=== PATIENT | male | born 1990 | race Native Hawaiian/Other Pacific Islander ===

== ENCOUNTER 2019-01-05 13:16 | Emergency (ER) | payer BC ==
[~2019-01-05] VITALS: Ht 177.8 cm; Wt 80.3 kg
[2019-01-05 13:20] VITALS: BP 160/95; TEMP 99.1
== END 2019-01-05 15:51 | disposition home or self-care (01) ==
LOC: ED 13:16
PROC: 0HQFXZZ Repair Right Hand Skin, External Approach (ICD-10-PCS; principal; 2019-01-05)
PROC: 2W3JX1Z Immobilization of Right Finger using Splint (ICD-10-PCS; 2019-01-05)
DX: S61.220A Laceration with foreign body of right index finger without damage to nail, initial encounter (principal); W29.8XXA Contact with other powered hand tools and household machinery, initial encounter
CPT/HCPCS: 90471; 90715; 96372; 99283; J0696; J7040

== ENCOUNTER 2019-01-07 08:56 | Emergency (ER) | payer BC ==
[~2019-01-07] VITALS: Ht 177.8 cm; Wt 80.3 kg
[2019-01-07 09:09] VITALS: BP 139/86; TEMP 99.7
[2019-01-07] MEDS ORDERED: CEPH500C20 PO ×2 (09:38)
[2019-01-07] MEDS ORDERED: NEOMOIN TOP ×2 (10:00)
== END 2019-01-07 09:55 | disposition home or self-care (01) ==
LOC: ED 08:56
DX: Z48.00 Encounter for change or removal of nonsurgical wound dressing (principal)